=== PATIENT | female | born 1990 | race Caucasian/White ===

== ENCOUNTER 2017-03-01 19:55 | Emergency (ER) | payer OTHER ==
--- NOTE | ~2017-03-01 | CR21 ---
[facility]. [facility] A Service of [facility] & [facility] RADIOLOGY TEXT RESULTS PATIENT: TERESITA SIMON LOCATION: SED : 89 UNIT #: [id number] AGE: [address]: Cristina Flores APRN SEX: F ORDER DR: [id number] [place] [id number] E MR#: [id number] Acc #: [id number] NAME: TERESITA SIMON : 1990 SEX: F STUDY DATE/TIME: 03/01/2017 19:46 UNIT: SED ROOM: STUDY DESCRIPTION: CR Ankle Min 3 Views Rt Attending Physician: Cristina Flores A.P.R.N. Ordering Physician: Cristina Flores A.P.R.N. Primary Care Physician: Monet Lutz A.P.R.N. MEDICAL IMAGING REPORT This report is preliminary unless electronic signature is present. EXAM Ankle 3 views right HISTORY Pain lateral ankle since last night. No known injury. COMMENT 3 views of the right ankle are reviewed. Patient has a plantar calcaneal spur. This is present on comparison film of 09/25/2016. Probably old trauma to the ankle with some dystrophic calcifications seen. No acute fracture. The ankle mortise is anatomic. IMPRESSION No acute abnormality appreciated right ankle. Probably prior trauma to the ankle with some dystrophic calcification but the ankle mortise is anatomic. There is also a large plantar calcaneal spur redemonstrated. Dictated by... Abigail Cerda M.D. THIS IS AN ELECTRONICALLY VERIFIED REPORT Abigail Cerda M.D. at 03/02/2017 3:09 PM BERT/chas TD: 03/02/2017 14:25 JOB #: [id number] MEDICAL IMAGING REPORT Page 1 of 1
[~2017-03-01 19:55] MED LIST: ALLEGRA-D1 TAB.SR1 PO; AMOXICILLIN500 M1 PO; BENTYL10 MG PO; BIRTH CONTROL PILL; ILOTYCIN1 GM OD; LISINOPRIL-HCTZ1 T19 PO; LOMOTIL TABLET1 TAB PO; METFORMIN HCL500 M1 PO; ORTHO TRI-7 DAYSX 3 PO; PERCOCET 5-3251 TAB PO; PRENAPLUS TABL1 EACH PO; SINGULAIR PO; TOPROL XL PO; ZOFRAN ODT4 MG PO
== END 2017-03-01 20:39 | disposition home or self-care (01) ==
LOC: SED 19:55
DX: M77.9 Enthesopathy, unspecified (principal); J45.909 Unspecified asthma, uncomplicated; I10 Essential (primary) hypertension
CPT/HCPCS: 29405; 73610; 96372; 99283; J1885